=== PATIENT | female | born 1935 | race Caucasian/White ===

== ENCOUNTER → 2017-03-09 | Outpatient (CLI) | payer OTHER, BC | LOC: FIMAGING 16:11 | PROVIDERS: ATTEND Family Medicine Geriatric Medicine | DX: R06.00 Dyspnea, unspecified (principal); R09.02 Hypoxemia; R60.9 Edema, unspecified; M51.34 Other intervertebral disc degeneration, thoracic region ==

== ENCOUNTER → 2017-04-16 | Outpatient (CLI) | payer OTHER, BC | LOC: BHFA 14:00 | PROVIDERS: ATTEND Internal Medicine Cardiovascular Disease | DX: I73.9 Peripheral vascular disease, unspecified (principal) ==

== ENCOUNTER → 2017-05-26 | Outpatient (CLI) | payer OTHER, BC | LOC: BHFA 08:30 | PROVIDERS: ATTEND Internal Medicine Cardiovascular Disease | DX: R06.09 Other forms of dyspnea (principal); R06.02 Shortness of breath | CPT/HCPCS: 78452; 93017; A9500; J2785 ==

== ENCOUNTER → 2017-07-25 | Outpatient (CLI) | payer OTHER, BC | LOC: FIMAGING 11:38 | PROVIDERS: ATTEND Internal Medicine Pulmonary Disease | DX: R06.00 Dyspnea, unspecified (principal); M41.86 Other forms of scoliosis, lumbar region; M41.84 Other forms of scoliosis, thoracic region ==

== ENCOUNTER → 2017-08-20 | Outpatient (CLI) | payer OTHER, BC | LOC: FIMAGING 07:07 | DX: Z12.31 Encounter for screening mammogram for malignant neoplasm of breast (principal); Z80.3 Family history of malignant neoplasm of breast | CPT/HCPCS: G0202 ==

== ENCOUNTER → 2017-09-15 | Outpatient (CLI) | payer OTHER, BC | LOC: BHFA 08:30 | PROVIDERS: ATTEND Internal Medicine Cardiovascular Disease | DX: I34.0 Nonrheumatic mitral (valve) insufficiency (principal) ==

== ENCOUNTER → 2018-04-13 | Outpatient (CLI) | payer OTHER, BC | LOC: BMCIMAGING 10:31 | PROVIDERS: ATTEND Internal Medicine Rheumatology | DX: Z13.820 Encounter for screening for osteoporosis (principal); M81.0 Age-related osteoporosis without current pathological fracture; Z78.0 Asymptomatic menopausal state; Z87.81 Personal history of (healed) traumatic fracture ==

== ENCOUNTER → 2018-08-22 | Outpatient (CLI) | payer OTHER, BC | LOC: BMCIMAGING 08:56 | PROVIDERS: ATTEND Family Medicine Geriatric Medicine | DX: Z12.31 Encounter for screening mammogram for malignant neoplasm of breast (principal); Z80.3 Family history of malignant neoplasm of breast ==

== ENCOUNTER 2018-10-08 16:30 | Emergency (ER) | payer OTHER, BC ==
[2018-10-08 17:08] LABS: PLATELET COUNT 273 10^3/uL (150-400)
--- NOTE | 2018-10-08 17:10 | EDPHY ---
HPI/HX/ROS/PE/MDM Narrative: CHIEF COMPLAINT: Chest pain, nausea HPI: The patient is an 83 y/o female with a history of CVA and hypertension arriving with her son complaining of now resolved chest pain and nausea onset at 13:00, about 4 hours ago. She describes sharp left-sided chest pain lasting for a few hours. When present, breathing did not change pain. She denies dyspnea , recent fever or cough, vomiting, abdominal pain, diarrhea. She does have some bilateral leg swelling that is abnormal for her. She denies any known history of MT, CAD, diabetes, lung disease. She had a stress test last year with Dr. Gonzalez that she doesn't know the results of. REVIEW OF SYSTEMS: Aside from elements discussed in the HPI, a comprehensive 10-point review of systems was reviewed and is negative. PMH: CVA 2002, hypertension SOCIAL HISTORY: Son at bedside. Lives in [place]. . Retired. [employer] : Dr. Gonzalez. PHYSICAL EXAM: General:Patient is alert, in no acute distress. ENT:Eyes are normal to inspection. ENT inspection normal. Neck: Normal inspection. Full range of motion. Respiratory:No respiratory distress. Breath sounds normal bilaterally. Cardiovascular: Regular rate and rhythm. Strong peripheral pulses. Normal cap refill. Abdomen:The abdomen is nontender to palpation. There are no peritoneal signs. Back: Normal to inspection. No tenderness to palpation. Skin: Normal color. No rash. Warm and dry. Extremities: Trace symmetrical pedal edema bilaterally.. Full range of motion. Neuro: Oriented x3. Normal motor function. Normal sensory function. ED Course: This is an 83 y/o female with a history of hypertension and CVA who presents with a non-resolved approximately 3-hour episode of left-sided chest pain and nausea today. She is currently asymptomatic. She has trace pedal edema and clear lungs on auscultation. Plan for IV, labs, EKG, chest x-ray. The 12 lead EKG was interpreted by myself. See hard copy and/or "tracemaster" electronic copy for interpretation. Chest x-ray: cardiomegaly, no infiltrate. Labs unremarkable. Reassessed patient and discussed findings. Recommended admission for further cardiac evaluation, but she has declined this. Advised following up with her hammer smith as soon as possible without fail. Return precautions discussed. She is comfortable with this plan. MDM: This patient presents with chest pain in the setting of numerous risk factors. Her initial workup is negative for signs of ACS, PE, PNA, TAD, trauma. Her HEART score indicates that she should be admitted for further workup but she adamantly declines this. We will respect her wishes and assist her with close outpatient follow-up. - Data Points Imaging Results: Imaging Impressions Chest X-Ray 10/08/18 16:46 Impression: Stable mild cardiomegaly without evidence of pneumonia or pleural effusion.. Imaging: I viewed and interpreted images myself Laboratory Results: Laboratory Results 10/08/18 16:50 10/08/18 16:50 10/08/18 10/08/18 10/08/18 16:54 16:50 16:50 WBC 8.26 10^3/uL 10^3/uL (3.80-9.50) RBC 4.50 10^6/uL 10^6/uL (4.18-5.33) Hgb 13.2 g/dL g/dL (12.6-16.3) Hct 40.9 % % (38.0-47.0) MCV 90.9 fL fL (81.5-99.8) MCH 29.3 pg pg (27.9-34.1) MCHC 32.3 g/dL L g/dL (32.4-36.7) RDW 13.9 % % (11.5-15.2) Plt Count 273 10^3/uL 10^3/uL (150-400) MPV 10.1 fL fL (8.7-11.7) Neut % (Auto) 66.9 % % (39.3-74.2) Lymph % (Auto) 20.2 % % (15.0-45.0) Larue % (Auto) 7.1 % % (4.5-13.0) Eos % (Auto) 4.1 % % (0.6-7.6) Baso % (Auto) 1.1 % % (0.3-1.7) Nucleat RBC Rel Count 0.0 % % (0.0-0.2) Absolute Neuts (auto) 5.52 10^3/uL 10^3/uL (1.70-6.50) Absolute Lymphs (auto) 1.67 10^3/uL 10^3/uL (1.00-3.00) Absolute Monos (auto) 0.59 10^3/uL 10^3/uL (0.30-0.80) Absolute Eos (auto) 0.34 10^3/uL 10^3/uL (0.03-0.40) Absolute Basos (auto) 0.09 10^3/uL 10^3/uL (0.02-0.10) Absolute Nucleated RBC 0.00 10^3/uL 10^3/uL (0-0.01) Immature Gran % 0.6 % % (0.0-1.1) Immature Gran # 0.05 10^3/uL 10^3/uL (0.00-0.10) Sodium 140 mEq/L mEq/L (135-145) Potassium 3.6 mEq/L mEq/L (3.5-5.2) Chloride 107 mEq/L mEq/L (97-110) Carbon Dioxide 24 mEq/l mEq/l (22-31) Anion Gap 9 mEq/L mEq/L (6-14) BUN 17 mg/dL mg/dL (7-23) Creatinine 1.0 mg/dL mg/dL (0.6-1.0) Estimated GFR 53 Glucose 137 mg/dL H mg/dL (70-100) Calcium 9.4 mg/dL mg/dL (8.5-10.4) POC Troponin I 0.00 ng/mL ng/mL (0.00-0.08) Point of Care Test Results: Chemistry 10/08/18 16:54 POC Troponin I 0.00 ng/mL ng/mL (0.00-0.08) General Time Seen by Provider: 10/08/18 16:41 Initial Vital Signs: Initial Vital Signs Temperature (C) 36.6 C 10/08/18 16:31 Heart Rate 76 10/08/18 16:31 Respiratory Rate 18 10/08/18 16:31 Blood Pressure 186/96 H 10/08/18 16:31 O2 Sat (%) 91 L 10/08/18 16:31 O2 Delivery Mode Room Air Allergies/Adverse Reactions: Penicillins Allergy (Verified 10/08/18 16:36) Home Medications: Medication Instructions Recorded Amitriptyline HCl 10/08/18 Carvedilol 10/08/18 Gabapentin 10/08/18 HCTZ (*) 10/08/18 Hydrocodone/Acetaminophen 10/08/18 [Hydrocodone-Acetamin 5-325 mg] Latanoprost 10/08/18 Levothyroxine 10/08/18 Losartan Potassium 10/08/18 Departure - Departure Disposition: Home, Routine, Self-Care Clinical Impression: Chest pain Condition: Good Instructions: Chest Pain (ED) Additional Instructions: Follow up with your hammer smith on Wednesday without fail. Return to the ED for chest pain, shortness of breath, abdominal pain, or any other worsening of condition. Referrals: Jessica Mccormick MD [Primary Care Provider] - As per Instructions Margarita Gonzalez MD [Medical Doctor] - As per Instructions Report Scribed for: Edgard Santoyo Report Scribed by: Venus Edwards Date of Report: 10/08/18 Time of Report: 17:10 Physician Review and Approval Statement: Portions of this note were transcribed by an ED scribe. I personally performed the history, physical exam, and medical decision making; and confirm the accuracy of the information in the transcribed note.
[2018-10-08 17:53] VITALS: BP 161/80
--- NOTE | 2018-10-09 22:34 | CPEKG ---
Test Reason : OPEN Blood Pressure : / mmHG Vent. Rate : 071 BPM Atrial Rate : 071 BPM P-R Int : 194 ms QRS Dur : 114 ms QT Int : 432 ms P-R-T Axes : 073 -21 021 degrees QTc Int : 470 ms Sinus rhythm Confirmed by Edgard Santoyo ([id number]) on 10/09/2018 10:33:55 PM Referred By: Edgard Santoyo Confirmed By:Edgard Santoyo
== END 2018-10-08 17:52 | disposition home or self-care (01) ==
DX: R07.9 Chest pain, unspecified (principal); R11.0 Nausea
CPT/HCPCS: 84484-ER